=== PATIENT | male | born 1950 | race Caucasian/White ===

== ENCOUNTER → 2016-08-01 | Outpatient (CLI) | payer MEDICARE | LOC: OD 14:20 | PROVIDERS: ATTEND Radiology Radiation Oncology | DX: C61 Malignant neoplasm of prostate (principal); R97.20 Elevated prostate specific antigen [PSA] | CPT/HCPCS: 36415; 84153 ==

== ENCOUNTER → 2016-11-14 | Outpatient (CLI) | payer MEDICARE | LOC: OD 15:20 | PROVIDERS: ATTEND Radiology Radiation Oncology | DX: C61 Malignant neoplasm of prostate (principal); R97.20 Elevated prostate specific antigen [PSA] | CPT/HCPCS: 36415; 84153 ==

== ENCOUNTER → 2017-05-15 | Outpatient (CLI) | payer MEDICARE | LOC: OD 09:58 | PROVIDERS: ATTEND Radiology Radiation Oncology | DX: C61 Malignant neoplasm of prostate (principal) | CPT/HCPCS: 36415; 84153 ==

== ENCOUNTER → 2017-11-14 | Outpatient (CLI) | payer MEDICARE | LOC: OD 15:35 | PROVIDERS: ATTEND Radiology Radiation Oncology | DX: C61 Malignant neoplasm of prostate (principal) | CPT/HCPCS: 36415; 84153 ==

== ENCOUNTER → 2017-12-11 | Outpatient (CLI) | payer MEDICARE ==
[~2017-12-11] MED LIST: REGADENOSON INJ 0.4 MG/5 ML DISP.SYRIN IV ONE
--- NOTE | 2017-12-13 00:28 | DRAGON STRESS TEST REPORT ---
Intravenous Lexiscan Cardiolite stress test using single photon emmision computerized tomography. Date of procedure: 12/11/2017. Ordering Provider: Dr. Murphy. Patient's status: Out Patient. Indication: Chest pain. Coronary risk factors: Age, and hypertension. Resting EKG: Sinus Rhythm. 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 Stress EKG[ No changes of ischemia. The patient had no chest pain or discomfort and there were no arrhythmias seen. Reason for termination: Protocol. Conclusions: Normal EKG and hemodynamic response to IV Lexiscan. Nuclear data: At rest the patient was given 14.47 millicuries of technetium 99m sestamibi injected intravenously. As per protocol rest non gated SPECT images were obtained. Subsequently the patient was given intravenous Lexiscan at a dose of 0.4 mg in 5 mL intravenously, followed by flush with normal saline. Subsequently the stress dose of 47.2 millicuries of technetium 99m sestamibi was injected intravenously. As per protocol stress gated images were obtained. Nuclear interpretation: Review of images showed that all segments of the myocardium had normal perfusion at rest, and normal perfusion post stress with IV Lexiscan. All segments of the myocardium had normal motion, contraction, and thickening by gated study. T. I D. ratio was normal at . 1.09. Computer read rest, and stress left ventricular ejection fraction were 63 %, and 59 %, respectively. Conclusion: 1. There is no scintigraphic evidence of Lexiscan induced myocardial ischemia. 2. There is no scintigraphic evidence of myocardial infarction/scar. Recommendations: Aggressive risk factor modification, and treating the underlying co- morbidities. WILLID
== END ==
LOC: RAD 07:59
PROVIDERS: ATTEND Family Medicine
DX: R07.9 Chest pain, unspecified (principal); I10 Essential (primary) hypertension
CPT/HCPCS: 93017; 78452; A9500; J2785

== ENCOUNTER → 2018-06-04 | Outpatient (CLI) | payer MEDICARE | LOC: OD 11:21 | PROVIDERS: ATTEND Radiology Radiation Oncology | DX: C61 Malignant neoplasm of prostate (principal); R97.20 Elevated prostate specific antigen [PSA] | CPT/HCPCS: 36415; 84153 ==

== ENCOUNTER 2018-06-10 18:58 | Emergency (ER) | payer MEDICARE ==
[2018-06-10] MEDS ORDERED: DEXAMETHASONE 4 MG TABLET PO ONE ×2 (19:47→20:53)
[2018-06-10] MEDS ORDERED: METHOCARBAMOL 500 MG TABLET PO ONE (19:47)
--- NOTE | 2018-06-10 19:55 | ER Document Report ---
Addendum entered and electronically signed by RUTH GRACIA NP 07/01/18 02:33: Discharge - Discharge Clinical Impression: Flank pain Left lower lobe pneumonia Qualifiers: Pneumonia type: due to unspecified organism Qualified Code(s): J18.1 - Lobar pneumonia, unspecified organism Condition: Stable Disposition: HOME, SELF-CARE Additional Instructions: Your evaluation is consistent with pneumonia. Rest, take Tylenol or ibuprofen for pain (1000 mg of Tylenol and/or 600 mg of ibuprofen up to every 6 hours). If you take the provided pain/cough medicine do not take extra Tylenol, only take ibuprofen with this. If you take the pain medicine also take the Colace stool softener to avoid constipation. Follow-up within the next 2-3 days with your primary care provider. Return if you worsen including increased pain, difficulty breathing, or any other concerning or worsening symptoms. Prescriptions: Docusate Sodium [Colace 100 mg Capsule] 100 mg PO ASDIR PRN #30 capsule PRN Reason: Doxycycline Hyclate 100 mg PO BID #14 capsule Hydrocodone/Acetaminophen [[place] 5-325 mg Tablet] 1 tab PO ASDIR #10 tablet Referrals: ISABELL ESTEABN MD [ACTIVE STAFF] - 06/13/18 Original Note: ED Neck/Back Problem - General Mode of Arrival: Ambulatory Information source: Patient TRAVEL OUTSIDE OF THE [place] IN LAST 30 DAYS: No - HPI Patient complains to provider of: Upper back Onset: Other - 3 days this time worse today Onset: Gradual - Has had in the past Timing: Still present, Worse Quality of pain: Sharp, Other - Spasming Severity: Severe Pain Level: 5 Context: Bending Recent injury: No Associated symptoms: Like prior neck/back pain, Upper back pain. denies: Constipation, Motor loss, Numbness/tingling, Radiation to arm, Radiation to chest, Radiation to leg, Sensory loss, Unable to urinate, Lower back pain Exacerbated by: Cough/deep breaths, Movement of trunk, Sitting position Relieved by: Nothing Similar symptoms previously: Yes Recently seen / treated by doctor: Yes <RUTH GRACIA - Last Filed: 06/10/18 21:18> <BENJAMIN NATH - Last Filed: 06/11/18 03:30> - General Chief Complaint: Back Pain Stated Complaint: BACK PAIN Time Seen by Provider: 06/10/18 19:27 Notes: 68-year-old male presents to ED for complaint of back pain times 3 days this time. He states is getting worse with intermittent back spasms. He states that his unable to sit down and then get back up. He denies any trauma to back. He does have a long history of back pain. He states to 2 years ago he had severe back pain and had chiropractor to help him and got rid of the pain but now he is having severe pain again. He does have a history of prostate cancer with a removal of the prostate. He states he had some Flexeril left at home and he took those with no relief. He does have a history of degenerative disc disease and bulging disc. He states he also had a stress test a couple months ago which was negative. He does have a history of high blood pressure but not of cholesterol. He is got a history of asthma bronchitis and pneumonia. Patient is alert oriented respirations regular and unlabored. He states that is extremely painful to stand up from sitting or to get from a lying position to a sitting position. 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 Lives with: Family, Other Family History: Hyperlipidemia, Hypertension, Malignancy Patient has suicidal ideation: No Patient has homicidal ideation: No - Past Medical History Cardiac Medical History: Reports: Hx Hypertension Pulmonary Medical History: Reports: Hx Asthma, Hx Bronchitis, Hx Pneumonia, Hx Sleep Apnea - sleep apnea EENT Medical History: Reports: None Neurological Medical History: Reports: None Renal/ Medical History: Reports: None Malignancy Medical History: Reports Hx Prostate Cancer - Removal of prostate GI Medical History: Reports: Hx Diverticulitis, Hx Colonoscopy Musculoskeletal Medical History: Reports Hx Arthritis, Reports Hx Muscle Spasm, Reports Hx Musculoskeletal Deformity, Reports Hx Musculoskeletal Trauma Skin Medical History: Reports None Psychiatric Medical History: Reports: Hx Depression Traumatic Medical History: Reports: Hx Fractures - Arm clavicle patella Infectious Medical History: Reports: None Past Surgical History: Reports: Hx Orthopedic Surgery - Shoulder dislocation repair, Other - Prostate removed due to prostate cancer - Immunizations Immunizations up to date: Yes Hx Diphtheria, Pertussis, Tetanus Vaccination: Yes <RUTH GRACIA - Last Filed: 06/10/18 21:18> Review of Systems - Review of Systems Constitutional: No symptoms reported EENT: No symptoms reported Cardiovascular: No symptoms reported Respiratory: No symptoms reported Gastrointestinal: No symptoms reported Genitourinary: No symptoms reported Male Genitourinary: No symptoms reported Musculoskeletal: Back pain, Muscle pain, Muscle stiffness. denies: Neck pain Skin: No symptoms reported Hematologic/Lymphatic: No symptoms reported Neurological/Psychological: No symptoms reported -: Yes All other systems reviewed and negative <RUTH GRACIA - Last Filed: 06/10/18 21:18> Physical Exam - Vital signs Interpretation: Hypertensive, Tachycardic, Tachypneic - General General appearance: Appears well, Alert - HEENT Head: Normocephalic, Atraumatic Eyes: Normal Pupils: PERRL - Respiratory Respiratory status: Tachypnea Chest status: Tender - Back, Pain with cough - Left back, Pain with deep breathing - Left back Breath sounds: Nonproductive cough, Rhonchi Chest palpation: Normal - Cardiovascular Rhythm: Regular Heart sounds: Normal auscultation Murmur: No - Abdominal Inspection: Normal Distension: No distension Bowel sounds: Normal Tenderness: Nontender Organomegaly: No organomegaly - Back Back: Normal, Tender, Vertebra tenderness - Thoracic and bilateral muscle pain - Extremities General upper extremity: Normal inspection, Nontender, Normal color, Normal ROM, Normal temperature General lower extremity: Normal inspection, Nontender, Normal color, Normal ROM, Normal temperature, Normal weight bearing. No: Gene's sign - Neurological Neuro grossly intact: Yes Cognition: Normal Orientation: AAOx4 Kael Coma Scale Eye Opening: Spontaneous [place] Coma Scale Verbal: Oriented Kael Coma Scale Motor: Obeys Commands [place] Coma Scale Total: 15 Speech: Normal Motor strength normal: LUE, RUE, LLE, RLE Sensory: Normal - Psychological Associated symptoms: Normal affect, Normal mood - Skin Skin Temperature: Warm Skin Moisture: Dry Skin Color: Normal <RUTH GRACIA - Last Filed: 06/10/18 21:18> - Vital signs Vitals: Temp Pulse Resp BP Pulse Ox 98.9 F 117 H 22 H 148/94 H 95 06/10/18 19:12 06/10/18 19:12 06/10/18 19:12 06/10/18 19:12 06/10/18 19:12 Course - Diagnostic Test Radiology reviewed: Image reviewed, Reports reviewed <RUTH GRACIA - Last Filed: 06/10/18 21:18> - Laboratory Result Diagrams: 06/10/18 21:30 06/10/18 21:30 <BENJAMIN NATH - Last Filed: 06/11/18 03:30> - Re-evaluation Re-evalutation: 06/10/18 21:[address] Esteban for the x-ray and the patient's pain level. He came and saw the patient. He stated he would like a full septic workup completed as well as a rectal temp. He stated depending on the workup whether or not the patient would be need to be admitted or could be sent home. He recommended Levaquin and Tylenol with IV fluids. He also recommended the patient be moved to a monitored bed. I then went and spoke with Benjamin PUENTES. The overnight mid-level. I gave him report of the patient and introduced him to the patient as I will be going home at this time. All the orders were placed in the computer and the nurses were informed that the patient needed IVs blood work urine and antibiotics as well as IV fluids. (RUTH GRACIA) On my evaluation patient initially with tachypnea, ill-appearing. However on reevaluation after treatment of fever he states he feels much better. He still is having a lot of pain with movement and with ambulation. He was given 1 tablet of [place]. Tested for influenza but this was negative. CBC, chemistry, lactic acid, general workup unremarkable. Vital signs unremarkable on reevaluation. Patient states he feels excellent now. He states he wants to go home. He already received initial antibiotics. Patient agrees to ambulate with pulse oxygenation testing but if he does well on this he insists that he will go home and follow-up with primary care. He does request some pain/cough medi cation for his symptoms. He was provided with this along with a stool softener. I discussed strict return precautions. Patient ambulated without any respiratory distress, notable tachycardia, or hypoxia. Discharged with return precautions. (BENJAMIN NATH) - Vital Signs Vital signs: Temp Pulse Resp BP Pulse Ox 98.3 F 104 H 21 H 123/88 H 93 06/11/18 00:54 06/10/18 21:42 06/11/18 00:53 06/11/18 00:54 06/11/18 00:53 - Laboratory Laboratory results interpreted by me: 06/10/18 06/10/18 21:30 22:48 Glucose 136 H Urine Blood SMALL H Urine Urobilinogen 2.0 H Discharge <RUTH GRACIA - Last Filed: 06/10/18 21:18> <BENJAMIN NATH - Last Filed: 06/11/18 03:30> - Discharge Clinical Impression: Flank pain Left lower lobe pneumonia Qualifiers: Pneumonia type: due to unspecified organism Qualified Code(s): J18.1 - Lobar pneumonia, unspecified organism Condition: Stable Disposition: HOME, SELF-CARE Additional Instructions: Your evaluation is consistent with pneumonia. Rest, take Tylenol or ibuprofen for pain (1000 mg of Tylenol and/or 600 mg of ibuprofen up to every 6 hours). If you take the provided pain/cough medicine do not take extra Tylenol, only take ibuprofen with this. If you take the pain medicine also take the Colace stool softener to avoid constipation. Follow-up within the next 2-3 days with your primary care provider. Return if you worsen including increased pain, difficulty breathing, or any other concerning or worsening symptoms. Prescriptions: Docusate Sodium [Colace 100 mg Capsule] 100 mg PO ASDIR PRN #30 capsule PRN Reason: RX: Doxycycline Hyclate 100 mg PO BID #14 capsule Hydrocodone/Acetaminophen [[place] 5-325 mg Tablet] 1 tab PO ASDIR #10 tablet Referrals: ISABELL ESTEBAN MD [ACTIVE STAFF] - 06/13/18
--- NOTE | 2018-06-10 20:35 | RADIOLOGY REPORT (SQ) ---
EXAM DESCRIPTION: T SPINE AP/LAT COMPLETED DATE/TIME: 06/10/2018 8:02 pm REASON FOR STUDY: pain from shoulder blades to just above waist COMPARISON: None. NUMBER OF VIEWS: Two views. TECHNIQUE: AP and lateral radiographic images acquired of the thoracic spine. LIMITATIONS: None. FINDINGS: MINERALIZATION: Normal. ALIGNMENT: Normal. No scoliosis. VERTEBRAE: No fracture or bone lesion. Maintained height, normal segmentation. DISCS: No significant loss of height or significant narrowing. No large osteophytes. HARDWARE: None in the spine. MEDIASTINUM AND SOFT TISSUES: Normal heart size and aortic contour. No soft tissue abnormality. VISUALIZED LUNG IRENE: Clear. OTHER: No other significant finding. IMPRESSION: NO SIGNIFICANT RADIOGRAPHIC FINDING IN THE THORACIC SPINE. TECHNICAL DOCUMENTATION: JOB ID: [id number] [employer]- All Rights Reserved Reading location - IP/workstation name: [email or web address]
--- NOTE | 2018-06-10 20:36 | RADIOLOGY REPORT (SQ) ---
EXAM DESCRIPTION: CHEST 2 VIEWS COMPLETED DATE/TIME: 06/10/2018 8:02 pm REASON FOR STUDY: pain from shoulder blades to just above waist COMPARISON: 03/29/2014 EXAM PARAMETERS: NUMBER OF VIEWS: two views TECHNIQUE: Digital Frontal and Lateral radiographic views of the chest acquired. RADIATION DOSE: NA LIMITATIONS: none FINDINGS: LUNGS AND PLEURA: Ill-defined opacification in the left base and anteriorly on the lateral view. MEDIASTINUM AND HILAR STRUCTURES: No masses or contour abnormalities. HEART AND VASCULAR STRUCTURES: Heart normal size. No evidence for failure. BONES: No acute findings. HARDWARE: None in the chest. OTHER: No other significant finding. IMPRESSION: Limited lingular pneumonia. TECHNICAL DOCUMENTATION: JOB ID: [id number] [employer]- All Rights Reserved Reading location - IP/workstation name: [email or web address]
[2018-06-10] MEDS ORDERED: NORMAL SALINE 1000 ML 1,000 ML IV ONE (21:00)
[2018-06-10] MEDS ORDERED: ACETAMINOPHEN 325 MG TABLET PO ONE (21:00)
[2018-06-10] MEDS ORDERED: LEVOFLOXACIN 750 MG/D5W RTU 750 MG/150 ML RTUPB IV ONE (21:00)
[2018-06-10] MEDS ORDERED: ACETAMINOPHEN 325 MG TABLET ONE (21:19)
[2018-06-10 22:02] LABS: ABSOLUTE EOSINOPHILS # (AUTO) 0.1 10^3/uL (0.0-0.6); ABSOLUTE LYMPHOCYTES (AUTO) 1.2 10^3/uL (0.5-4.7); ABSOLUTE MONOCYTES (AUTO) 0.9 10^3/uL (0.1-1.4); ABSOLUTE NEUT (AUTO) 6.2 10^3/uL (1.7-8.2); BASOPHILS % (AUTO) 0.3 % (0-2); EOSINOPHILS % (AUTO) 1.6 % (0-6); HEMATOCRIT 41.8 % (37.9-51.0); HEMOGLOBIN 14.8 g/dL (13.5-17.0); LYMPHOCYTES % (AUTO) 13.9 % (13-45); MEAN CORPUSCULAR HEMOGLOBIN 32.8 pg (27.0-33.4); MEAN CORPUSCULAR HGB CONC 35.4 g/dL (32.0-36.0); MEAN CORPUSCULAR VOLUME 93 fl (80-97); MONOCYTES % (AUTO) 11.1 % (3-13); PLATELET COUNT 242 10^3/uL (150-450); RED BLOOD COUNT 4.51 10^6/uL (4.35-5.55); RED CELL DISTRIBUTION WIDTH 12.6 % (11.5-14.0); SEGMENTED NEUTROPHILS % (AUTO) 73.1 % (42-78); TOTAL CELLS COUNTED % (AUTO) 100 %; WHITE BLOOD COUNT 8.5 10^3/uL (4.0-10.5)
[2018-06-10 22:05] LABS: VENOUS BLOOD BASE EXCESS 2.5 mmol/L; VENOUS BLOOD HCO3 29.1 mmol/L (20-32); VENOUS BLOOD PCO2 51.7 mmHg (35-63); VENOUS BLOOD PH 7.37 (7.30-7.42)
[2018-06-10 22:14] LABS: INTERNATIONAL RATION (INR) 0.95; PROTHROMBIN TIME 13.1 SEC (11.4-15.4)
[2018-06-10 22:21] LABS: ALANINE AMINOTRANSFERASE 27 U/L (21-72); ALBUMIN 4.5 g/dL (3.5-5.0); ALKALINE PHOSPHATASE 62 U/L (38-126); ANION GAP 11 (5-19); ASPARTATE AMINO TRANSFERASE 18 U/L (17-59); BILIRUBIN,DIRECT 0.2 mg/dL (0.0-0.4); BILIRUBIN,TOTAL 0.8 mg/dL (0.2-1.3); BLOOD UREA NITROGEN 16 mg/dL (7-20); CALCIUM 9.4 mg/dL (8.4-10.2); CARBON DIOXIDE 27 mmol/L (22-30); CHLORIDE 102 mmol/L (98-107); GLUCOSE 136 mg/dL (75-110); POTASSIUM 4.4 mmol/L (3.6-5.0); SODIUM 139.6 mmol/L (137-145); TOTAL PROTEIN 7.2 g/dL (6.3-8.2)
[2018-06-10] MEDS ORDERED: HYDROCODONE/ACETAMINOPHEN 5-325 MG TABLET PO ONE (22:53)
[2018-06-10 23:29] LABS: A TYPE INFLUENZA AG NEGATIVE (NEGATIVE); B INFLUENZA AG NEGATIVE (NEGATIVE)
[2018-06-10 23:30] LABS: APPEARANCE,URINE CLEAR; BILIRUBIN,URINE NEGATIVE (NEGATIVE); COLOR,URINE YELLOW; GLUCOSE, URINE NEGATIVE (NEGATIVE); KETONES,URINE NEGATIVE (NEGATIVE); LEUKOCYTE ESTERASE,URINE NEGATIVE (NEGATIVE); NITRITE,URINE NEGATIVE (NEGATIVE); PROTEIN,URINE NEGATIVE (NEGATIVE); URINE SPECIFIC GRAVITY 1.011
[2018-06-11 00:58] VITALS: BP 123/88
--- NOTE | 2018-06-11 08:07 | EKG REPORT ---
SEVERITY:- ABNORMAL ECG - SINUS RHYTHM BORDERLINE LEFT AXIS DEVIATION CONSIDER ANTERIOR INFARCT NONSPECIFIC ST-T CHANGES- INFERIOR LEADS : Confirmed by: Davis Eason MD 11-Jun-2018 08:06:27
== END 2018-06-11 00:58 | disposition home or self-care (01) ==
LOC: ER 18:58
DX: J18.1 Lobar pneumonia, unspecified organism (principal); R10.9 Unspecified abdominal pain; M54.6 Pain in thoracic spine; F17.200 Nicotine dependence, unspecified, uncomplicated; I10 Essential (primary) hypertension; J45.909 Unspecified asthma, uncomplicated
CPT/HCPCS: 93005; 99284; 96365; 36415; 87040; 85025; 85610; 80053; 81001; 82803; 83605; 87804; 71046; 72070; 93010; A9270 ×4; J7030; J1956

== ENCOUNTER 2018-07-27 10:23 | Emergency (ER) | payer MEDICARE ==
--- NOTE | 2018-07-27 11:09 | ER Document Report ---
ED Medical Screen (RME) - General Chief Complaint: Palpitations Stated Complaint: SHORT OF BREATH/PALPITATIONS Time Seen by Provider: 07/27/18 11:05 Notes: Patient is a 68-year-old male history of hypertension that presents to the emergency department for chief complaint of palpitations, intermittent shortness of breath and dyspnea on exertion, as well as chest pain. He has been having these episodes on and off, for some time, but seem to be more frequent over the past week. Had nuclear stress test in December of last year, that was reportedly negative. ROS: Other than noted above, the 12 point review of systems was reviewed with the pat ient and were negative, all pertinent findings are included in the HPI. PHYSICAL EXAMINATION: Vital signs reviewed. GENERAL: Well-appearing, well-nourished and in no acute distress. HEAD: Atraumatic, normocephalic. EYES: Pupils equal round extraocular movements intact, conjunctiva are normal. ENT: Nares patent NECK: Normal range of motion CV: Heart regular rate and rhythm LUNGS: No respiratory distress Musculoskeletal: Normal range of motion NEUROLOGICAL: Normal speech PSYCH: Normal mood, normal affect. MDM: Patient seen and examined for rapid initial assessment. Vital signs reviewed. A comprehensive ED assessment and evaluation of the patient, analysis of test results and completion of the medical decision making process will be conducted by additional ED providers. *Note is created using voice recognition software and may contain spelling, syntax or grammatical errors. TRAVEL OUTSIDE OF THE [place] IN LAST 30 DAYS: No - Related Data Allergies/Adverse Reactions: No Known Allergies Allergy (Unverified 06/04/12 23:09) Past Medical History - Social History Chew tobacco use (# tins/day): No Frequency of alcohol use: None Drug Abuse: None - Past Medical History Cardiac Medical History: Reports: Hx Hypertension Denies: Hx Atrial Fibrillation, Hx Congestive Heart Failure, Hx Coronary Artery Disease, Hx Heart Attack, Hx Hypercholesterolemia, Hx Peripheral Vascular Disease, Hx Pulmonary Embolism, Hx Heart Murmur Pulmonary Medical History: Reports: Hx Asthma, Hx Bronchitis, Hx Pneumonia, Hx Sleep Apnea - sleep apnea Denies: Hx COPD, Hx Respiratory Failure, Hx Tuberculosis Renal/ Medical History: Reports: Hx Benign Prostatic Hyperplasia - ca. Denies: Hx End Stage Renal Disease, Hx Kidney Stones, Hx Peritoneal Dialysis Malignancy Medical History: Denies Hx Lung Cancer, Reports Hx Prostate Cancer - Removal of prostate GI Medical History: Reports: Hx Diverticulitis, Hx Colonoscopy Musculoskeltal Medical History: Reports Hx Arthritis, Denies Hx Fibromyalgia, Denies Hx Muscular Dystrophy, Reports Hx Muscle Spasm, Reports Hx Musculoskeletal Deformity, Reports Hx Musculoskeletal Trauma Psychiatric Medical History: Reports: Hx Depression Traumatic Medical History: Reports: Hx Fractures - Arm clavicle patella Past Surgical History: Reports: Hx Orthopedic Surgery - Shoulder dislocation repair, Other - Prostate removed due to prostate cancer. Denies: Hx Appendectomy, Hx Bowel Surgery, Hx Cholecystectomy, Hx Coronary Artery Bypass Graft, Hx Gastric Bypass Surgery, Hx Herniorrhaphy, Hx Pacemaker, Hx Tonsillectomy - Immunizations Immunizations up to date: Yes Hx Diphtheria, Pertussis, Tetanus Vaccination: Yes Physical Exam - Vital signs Vitals: Temp Pulse Resp BP Pulse Ox 98.0 F 74 18 126/78 H 96 07/27/18 10:43 07/27/18 10:43 07/27/18 10:43 07/27/18 10:43 07/27/18 10:43 Course - Vital Signs Vital signs: Temp Pulse Resp BP Pulse Ox 98.0 F 74 18 126/78 H 96 07/27/18 10:43 07/27/18 10:43 07/27/18 10:43 07/27/18 10:43 07/27/18 10:43
[2018-07-27 11:46] LABS: ABSOLUTE EOSINOPHILS # (AUTO) 0.2 10^3/uL (0.0-0.6); ABSOLUTE LYMPHOCYTES (AUTO) 1.2 10^3/uL (0.5-4.7); ABSOLUTE MONOCYTES (AUTO) 0.5 10^3/uL (0.1-1.4); ABSOLUTE NEUT (AUTO) 2.8 10^3/uL (1.7-8.2); BASOPHILS % (AUTO) 0.6 % (0-2); EOSINOPHILS % (AUTO) 5.1 % (0-6); HEMATOCRIT 43.4 % (37.9-51.0); HEMOGLOBIN 15.4 g/dL (13.5-17.0); LYMPHOCYTES % (AUTO) 25.1 % (13-45); MEAN CORPUSCULAR HEMOGLOBIN 32.6 pg (27.0-33.4); MEAN CORPUSCULAR HGB CONC 35.5 g/dL (32.0-36.0); MEAN CORPUSCULAR VOLUME 92 fl (80-97); MONOCYTES % (AUTO) 10.3 % (3-13); PLATELET COUNT 257 10^3/uL (150-450); RED BLOOD COUNT 4.72 10^6/uL (4.35-5.55); RED CELL DISTRIBUTION WIDTH 12.8 % (11.5-14.0); SEGMENTED NEUTROPHILS % (AUTO) 58.9 % (42-78); TOTAL CELLS COUNTED % (AUTO) 100 %; WHITE BLOOD COUNT 4.8 10^3/uL (4.0-10.5)
--- NOTE | 2018-07-27 12:01 | ER Document Report ---
ED General - General Chief Complaint: Palpitations Stated Complaint: SHORT OF BREATH/PALPITATIONS Time Seen by Provider: 07/27/18 11:05 Primary Care Provider: ALTAF PIERRE MD [Primary Care Provider] - Follow up as needed Mode of Arrival: Ambulatory Information source: Patient, Relative, [facility] Records Notes: 68-year-old male with hypertension, recent diagnosis of pneumonia presents with complaint of palpitations, dyspnea on exertion and chest wall tightness. Patien t states symptoms have been intermittent for approximately 1 week. Patient denies any associated lightheadedness, diaphoresis, nausea, vomiting. He does report increasing shortness of breath with exertion. He does report that approximately 1 month ago he was diagnosed with pneumonia but not admitted and those symptoms have improved. He currently takes metoprolol. He reports a stress test in December 2017 which he reports to be normal. He does see Dr. Martini for cardiology and his primary care physician is Dr. Norman. Patient denies any drug, alcohol or tobacco use but does chew tobacco. He denies any new supplements, excessive caffeine use. TRAVEL OUTSIDE OF THE [place] IN LAST 30 DAYS: No - HPI Onset: Last week Onset/Duration: Gradual, Intermittent Quality of pain: Other - Tightness Severity: Mild Associated symptoms: Chest pain - Tightness, Shortness of breath. denies: Nonproductive cough, Productive cough, Fever, Headache, Nausea, Vomiting, Sweating, Weakness Exacerbated by: Other - Activity Relieved by: Remaining still Similar symptoms previously: Yes Recently seen / treated by doctor: Yes - Related Data Allergies/Adverse Reactions: No Known Allergies Allergy (Verified 07/27/18 11:09) Past Medical History - General Information source: Patient, Relative, [facility] Records - Social History Smoking Status: Never Smoker Chew tobacco use (# tins/day): Yes Frequency of alcohol use: None Drug Abuse: None Lives with: Spouse/Significant other Family History: Hyperlipidemia, Hypertension, Malignancy Patient has suicidal ideation: No Patient has homicidal ideation: No - Past Medical History Cardiac Medical History: Reports: Hx Hypertension Denies: Hx Atrial Fibrillation, Hx Congestive Heart Failure, Hx Coronary Artery Disease, Hx Heart Attack, Hx Hypercholesterolemia, Hx Peripheral Vascular Disease, Hx Pulmonary Embolism, Hx Heart Murmur Pulmonary Medical History: Reports: Hx Asthma, Hx Bronchitis, Hx Pneumonia, Hx Sleep Apnea - sleep apnea Denies: Hx COPD, Hx Respiratory Failure, Hx Tuberculosis Renal/ Medical History: Reports: Hx Benign Prostatic Hyperplasia - ca. Denies: Hx End Stage Renal Disease, Hx Kidney Stones, Hx Peritoneal Dialysis Malignancy Medical History: Denies Hx Lung Cancer, Reports Hx Prostate Cancer - Removal of prostate GI Medical History: Reports: Hx Diverticulitis, Hx Colonoscopy Musculoskeletal Medical History: Reports Hx Arthritis, Denies Hx Fibromyalgia, Denies Hx Muscular Dystrophy, Reports Hx Muscle Spasm, Reports Hx Musculoskeletal Deformity, Reports Hx Musculoskeletal Trauma Psychiatric Medical History: Reports: Hx Depression Traumatic Medical History: Reports: Hx Fractures - Arm clavicle patella Past Surgical History: Reports: Hx Orthopedic Surgery - Shoulder dislocation repair, Hx Urinary Tract Surgery - prostate removed, Other - Prostate removed due to prostate cancer. Denies: Hx Appendectomy, Hx Bowel Surgery, Hx Cholecystectomy, Hx Coronary Artery Bypass Graft, Hx Gastric Bypass Surgery, Hx Herniorrhaphy, Hx Pacemaker, Hx Tonsillectomy - Immunizations Immunizations up to date: Yes Hx Diphtheria, Pertussis, Tetanus Vaccination: Yes Review of Systems - Review of Systems Notes: REVIEW OF SYSTEMS: CONSTITUTIONAL : Denies fever, chills, or sweats. Denies recent illness. Denies weight loss, recent hospitalizations. EENT: Denies visual changes, eye pain. Denies sore throat, oral lesions, difficulty swallowing. CARDIOVASCULAR: Denies lower extremity edema. RESPIRATORY: Denies cough. Denies wheezing. GASTROINTESTINAL: Denies abdominal pain or distention. Denies nausea, vomiting, or diarrhea. Denies blood in vomitus, stools, or per rectum. Denies black, tarry stools. Denies constipation. GENITOURINARY: Denies difficulty urinating, painful urination, frequency, blood in urine, testicular pain or penile discharge. MUSCULOSKELETAL: Denies back or neck pain or stiffness. Denies joint pain or swelling. SKIN: Denies rash, lesions or sores. HEMATOLOGIC : Denies easy bruising or bleeding. LYMPHATIC: Denies swollen glands. NEUROLOGICAL: Denies confusion or altered mental status. Denies loss of consciousness. Denies dizziness or lightheadedness. Denies headache. Denies weakness or paralysis. Denies problems difficulty with ambulation, slurred speech. Denies sensory loss, numbness, or tingling. Denies seizures. PSYCHIATRIC: Denies anxiety or stress. Denies depression, suicidal ideation, or Physical Exam - Vital signs Vitals: Temp Pulse Resp BP Pulse Ox 98.0 F 74 18 126/78 H 96 07/27/18 10:43 07/27/18 10:43 07/27/18 10:43 07/27/18 10:43 07/27/18 10:43 - Notes Notes: PHYSICAL EXAMINATION: GENERAL: Well-appearing, well-nourished and in no acute distress. HEAD: Atraumatic, normocephalic. EYES: Pupils equal round and reactive to light, extraocular movements intact, sclera anicteric, conjunctiva are normal. ENT: Nares patent, oropharynx clear without exudates. Moist mucous membranes. NECK: Normal range of motion, supple without lymphadenopathy LUNGS: Breath sounds clear to auscultation bilaterally and equal. No wheezes rales or rhonchi. HEART: Regular rate and rhythm without murmurs ABDOMEN: Soft, nontender, nondistended abdomen. No guarding, no rebound. No masses appreciated. Musculoskeletal: Normal range of motion, no pitting or edema. No cyanosis. NEUROLOGICAL: Cranial nerves grossly intact. Normal speech, normal gait. Normal sensory, motor exams PSYCH: Normal mood, normal affect. SKIN: Warm, Dry, normal turgor, no rashes or lesions noted. Course - Re-evaluation Re-evalutation: 07/27/18 15:29 Laboratory 07/27/18 07/27/18 07/27/18 11:19 11:19 11:19 WBC 4.8 RBC 4.72 Hgb 15.4 Hct 43.4 MCV 92 MCH 32.6 MCHC 35.5 RDW 12.8 Plt Count 257 Seg Neutrophils % 58.9 Lymphocytes % 25.1 Monocytes % 10.3 Eosinophils % 5.1 Basophils % 0.6 Absolute Neutrophils 2.8 Absolute Lymphocytes 1.2 Absolute Monocytes 0.5 Absolute Eosinophils 0.2 Absolute Basophils 0.0 Sodium 141.8 Potassium 4.8 Chloride 104 Carbon Dioxide 28 Anion Gap 10 BUN 15 Creatinine 0.79 Est GFR ( Amer) > 60 Est GFR (Non-Af Amer) > 60 Glucose 139 H Calcium 10.0 Magnesium Total Bilirubin 0.8 Direct Bilirubin 0.2 Neonat Total Bilirubin Not Reportable Neonat Direct Bilirubin Not Reportable Neonat Indirect Bili Not Reportable AST 22 ALT 32 Alkaline Phosphatase 57 Troponin I < 0.012 NT-Pro-B Natriuret Pep 27 Total Protein 7.4 Albumin 4.7 TSH 07/27/18 07/27/18 07/27/18 11:19 11:19 14:20 WBC RBC Hgb Hct MCV MCH MCHC RDW Plt Count Seg Neutrophils % Lymphocytes % Monocytes % Eosinophils % Basophils % Absolute Neutrophils Absolute Lymphocytes Absolute Monocytes Absolute Eosinophils Absolute Basophils Sodium Potassium Chloride Carbon Dioxide Anion Gap BUN Creatinine Est GFR ( Amer) Est GFR (Non-Af Amer) Glucose Calcium Magnesium 2.0 Total Bilirubin Direct Bilirubin Neonat Total Bilirubin Neonat Direct Bilirubin Neonat Indirect Bili AST ALT Alkaline Phosphatase Troponin I < 0.012 NT-Pro-B Natriuret Pep Total Protein Albumin TSH 1.03 Chest X-Ray 07/27/18 11:06 IMPRESSION: NO ACUTE FINDINGS. Temp Pulse Resp BP Pulse Ox 98.0 F 74 19 126/78 H 98 07/27/18 10:43 07/27/18 10:43 07/27/18 15:00 07/27/18 10:43 07/27/18 15:00 07/28/18 09:43 68-year-old male with hypertension, recent diagnosis of pneumonia presents with complaint of palpitations, dyspnea on exertion and chest wall tightness. Patient states symptoms have been intermittent for approximately 1 week. Patient denies any associated lightheadedness, diaphoresis, nausea, vomiting. Vital signs reviewed and within normal limits upon arrival. Patient does not appear toxic or dehydrated. He is in no acute distress. Patient was placed on primary school teacher and EKG was obtained and interpreted by myself and showed the patient to be in normal sinus rhythm without any concerning ST elevation or e vidence of ischemia. CBC, CMP, cardiac enzymes including delta troponin are unremarkable. TSH within normal limits. Patient has been on a primary school teacher in the emergency department for over 5 hours without evidence of arrhythmia, atrial fibrillation. Patient does have an upcoming appointment with Dr. Martini in 4 days. Advised that he keep that appointment but return with any concerning symptoms. Follow up with your [id number] hours for further care or return to the ED IMMEDIATELY if symptoms worsen or you have any concerns. If you cannot afford to follow up with your primary care physician a list of low cost clinics have been provided at the end of your discharge papers as well. Most prescribed medications have multiple side effects. The safest thing to do is when filling your prescription speak to your pharmacist regarding possible interactions with your normal home medications and over the counter medications such as Ibuprofen, Tylenol, Benadryl. If you experience any symptoms that cause you discomfort or concern you should discontinue the medication immediately and return to the emergency room or call your primary care physician. HEART Score: History-0 ECG-0 Age-2 Risk Factors-1 Troponin Total: 3 If HEART score is = 3 AND both troponin measurements are normal, the 30 day risk of a major adverse cardiac event (all-cause mortality, myocardial infarction or need for coronary revascularization) is < 1% (Sensitivity 100%, NPV 100%). Chest pain in a patient without evidence of cardiac or other serious etiology on workup today. I discussed with patient that, based on their age, risk factors and emergency department testing today, the likelihood that their symptoms are related to a heart attack is very low (estimated risk of heart attack or over the next 30 days of less than 1%). The patient demonstrates decision making capacity and has verbalized an understanding of these risks to me. Based on this, the patient has chosen to follow-up as an outpatient. Usual chest pain return precautions reviewed. The patient states understanding and agreement with this plan. 07/28/18 09:43 - Vital Signs Vital signs: Temp Pulse Resp BP Pulse Ox 98 F 74 19 133/78 H 100 07/27/18 14:28 07/27/18 10:43 07/27/18 15:24 07/27/18 15:24 07/27/18 15:24 - Laboratory Result Diagrams: 07/27/18 11:19 07/27/18 11:19 Laboratory results interpreted by me: 07/27/18 11:19 Glucose 139 H - Diagnostic Test Radiology reviewed: Image reviewed, Reports reviewed - EKG Interpretation by Me EKG shows normal: Sinus rhythm Rate: Normal Rhythm: NSR When compared to previous EKG there are: No significant change Discharge - Discharge Clinical Impression: Palpitation Chest pain Qualifiers: Chest pain type: unspecified Qualified Code(s): R07.9 - Chest pain, unspecified Condition: Good Disposition: HOME, SELF-CARE Instructions: Chest Pain of Unclear Cause ([facility]), Dyspnea, Nonspecific ([facility]), Palpitations (Irregular or Rapid Heartrate) ([facility]) Additional Instructions: Please keep your already scheduled appointment with Dr. Martini. You were seen today for chest pain. The exact cause of your pain is unclear. However, based on your cardiac enzyme testing, chest x-ray, and EKG it does not appear that it is from an immediately life-threatening cause at this time. Although your testing here is normal is critical that you follow-up with your primary care physician for continued evaluation of this chest pain and possible stress testing. I recommended you see your physician within the next 24-48 hours to be evaluated for consideration of a stress test. Please return to emergency department immediately if you have worsening of your chest pain, shortness of breath, vomiting, become unable to exert yourself due to pain or difficulty breathing, you pass out, or have any pain that radiates into your arms, jaw, or back. Please also return if you have any additional symptoms that are concerning to you. Forms: Elevated Blood Pressure Referrals: ALTAF PIERRE MD [Primary Care Provider] - Follow up as needed
[2018-07-27 12:03] LABS: ALANINE AMINOTRANSFERASE 32 U/L (21-72); ALBUMIN 4.7 g/dL (3.5-5.0); ALKALINE PHOSPHATASE 57 U/L (38-126); ANION GAP 10 (5-19); ASPARTATE AMINO TRANSFERASE 22 U/L (17-59); BILIRUBIN,DIRECT 0.2 mg/dL (0.0-0.4); BILIRUBIN,TOTAL 0.8 mg/dL (0.2-1.3); BLOOD UREA NITROGEN 15 mg/dL (7-20); CARBON DIOXIDE 28 mmol/L (22-30); CHLORIDE 104 mmol/L (98-107); GLUCOSE 139 mg/dL (75-110); POTASSIUM 4.8 mmol/L (3.6-5.0); SODIUM 141.8 mmol/L (137-145); TOTAL PROTEIN 7.4 g/dL (6.3-8.2)
--- NOTE | 2018-07-27 12:09 | RADIOLOGY REPORT (SQ) ---
EXAM DESCRIPTION: CHEST SINGLE VIEW COMPLETED DATE/TIME: 07/27/2018 11:58 am REASON FOR STUDY: chest pain, palpitations COMPARISON: 06/10/2018 TECHNIQUE: Single frontal radiographic view of the chest acquired. NUMBER OF VIEWS: One view. LIMITATIONS: None. FINDINGS: LUNGS AND PLEURA: No pneumothorax. No consolidation or pleural effusion. MEDIASTINUM AND HILAR STRUCTURES: Stable. HEART AND VASCULAR STRUCTURES: Stable. BONES: No acute findings. HARDWARE: None in the chest. OTHER: No other significant finding. IMPRESSION: NO ACUTE FINDINGS. TECHNICAL DOCUMENTATION: JOB ID: [id number] [employer]- All Rights Reserved Reading location - IP/workstation name: [email or web address]
[2018-07-27 12:15] LABS: NT PRO BNP 27 pg/mL (5-900); TROPONIN I < 0.012 ng/mL
--- NOTE | 2018-07-27 15:57 | EKG REPORT ---
SEVERITY:- ABNORMAL ECG - SINUS RHYTHM INFERIOR INFARCT, AGE INDETERMINATE ABNRM R PROG, CONSIDER ASMI OR LEAD PLACEMENT : Confirmed by: Davis Eason MD 27-Jul-2018 15:57:05
--- NOTE | 2018-07-27 15:57 | EKG REPORT ---
SEVERITY:- ABNORMAL ECG - SINUS RHYTHM BORDERLINE LEFT AXIS DEVIATION ABNRM R PROG, CONSIDER ASMI OR LEAD PLACEMENT : Confirmed by: Davis Eason MD 27-Jul-2018 15:56:43
[2018-07-27 15:59] VITALS: BP 133/78
== END 2018-07-27 16:16 | disposition home or self-care (01) ==
LOC: ER 10:23
DX: R00.2 Palpitations (principal); J45.909 Unspecified asthma, uncomplicated; R07.89 Other chest pain; R06.02 Shortness of breath; I10 Essential (primary) hypertension; Z79.899 Other long term (current) drug therapy; Z87.01 Personal history of pneumonia (recurrent); Z72.0 Tobacco use; Z85.46 Personal history of malignant neoplasm of prostate
CPT/HCPCS: 36415; 71045; 80053; 83735; 83880; 84443; 84484; 85025; 93005; 93010; 99285